=== PATIENT | female | born 1935 | race Caucasian/White ===

== ENCOUNTER 2016-11-22 04:53 | Inpatient (IN) | payer MEDICARE, BC ==
--- NOTE | ~2016-11-22 | DS ---
Unit #: [id number] #: [id number] Patient: KARNE MONK [id number] [address] [address] [id number] MR#: [id number] NAME: KAREN MONK ROOM: 564 Age: Sex: F Admission Date: 11/22/2016 : 1935 Discharge Date: 11/23/2016 Attending Physician: Tremaine Dunn M.D. Primary Care Physician: Lev Govea M.D. DISCHARGE SUMMARY Kindly note, patient left against medical advice this morning before leaving. I spoke with her in the morning and I requested her to stay. I said I would come back and talk to her. Apparently per the nursing staff, she was unhappy and she left. They did not even sign the AMA papers that they left the patient. We did not evaluate the patient today as she left against medical advice. Dictated by... Alethea Cornejo/brenda TD: 11/23/2016 15:13 JOB #: [id number] DISCHARGE SUMMARY Page 1 of 1 X X DISCHARGE SUMMARY
--- NOTE | ~2016-11-22 | CR72 ---
[facility] A Service of [facility] & [facility] RADIOLOGY TEXT RESULTS PATIENT: KAREN MONK LOCATION: [facility] : 35 UNIT #: [id number] AGE: [address]: Tremaine Dunn MD SEX: F ORDER DR: [id number] [facility] [address] [place], [place] [address] [id number] MR#: [id number] Acc #: [id number] NAME: KAREN MONK : 1935 SEX: F STUDY DATE/TIME: 11/22/2016 5:20 UNIT: GRIS ROOM: STUDY DESCRIPTION: CR Chest Single View Portable Attending Physician: Marlon Perdomo M.D. Ordering Physician: Ganesh Barragan M.D. Primary Care Physician: Lev Govea M.D. MEDICAL IMAGING REPORT This report is preliminary unless electronic signature is present EXAM AP portable chest Date: 11/22/2016 HISTORY Nausea, weakness, vomiting and drop in oxygen saturations today. COMPARISON PA and lateral chest radiograph 12/06/2007 FINDINGS Fine interstitial thickening is present predominately in the lower lung zones which appears new since the 12/06/2007 study. Heart size is within normal limits. No pleural effusion or pneumothorax is identified. IMPRESSION AND PLAN Fine interstitial infiltrates seen predominately in the lower lung zones, new since 12/06/2007. Dictated by... Patricia Krueger M.D. THIS IS AN ELECTRONICALLY VERIFIED REPORT Patricia Krueger M.D. at 11/22/2016 10:02 PM YUSUF/radha TD: 11/22/2016 07:05 JOB #: [id number] MEDICAL IMAGING REPORT Page 1 of 1 COPY
--- NOTE | ~2016-11-22 | HP ---
Unit #: [id number] #: [id number] Patient: KAREN MONK [id number] [address] [place], [place] [address] [id number] MR#: [id number] NAME: KAREN MONK. ROOM: 564 Age: 81 Sex: F Admission Date: 11/22/2016 : 1935 Attending Physician: Tremaine Dunn M.D. Primary Care Physician: Lev Govea M.D. HISTORY AND PHYSICAL CHIEF COMPLAINT Nausea, vomiting, and increased frequency of urination. HISTORY OF PRESENTING ILLNESS Patient is an 81-year-old, pleasant, lady with a past medical history of diabetes, hypertension, and hypothyroidism. Presented to the emergency room with a chief complaint of nausea and vomiting for the last one day. She denies any fevers. Denies any chills. She mentions that last week, she had increased frequency of urination and she took a prescription of penicillin she had from September and she took the pills for a couple of days that helped to relieve the symptoms. Yesterday, she went out to [facility] along with her who has to undergo surgery for an ear malignancy and she mentions that she is a little bit stressed out. She denies having any cough, cold, runny nose. Denies any sore throat. Denies any chest pain. Denies any palpitations. Denies any shortness of breath, abdominal pain, or diarrhea. PAST MEDICAL HISTORY History of hypertension; history of diabetes, diet controlled; and hypothyroidism. ALLERGIES Iodinated contrast. MEDICATIONS Home medications include: 1. HCTZ 12.5 mg daily. 2. Vitamin E 200 international units p.o. daily. 3. Synthroid 88 mcg daily. 4. Lisinopril 20 mg daily. 5. Aspirin 81 mg daily. SOCIAL HISTORY She lives with her . Denied any smoking, alcohol, or illicit drugs. Apparently, she is the only one who takes care of her and she is eager to go back to home as soon as possible. FAMILY HISTORY Noncontributory to the current admission. REVIEW OF SYSTEMS Complete review of systems is done and negative, except for what is Unit #: [id number] #: [id number] Patient: KAREN MONK mentioned in the HPI. PHYSICAL EXAMINATION VITAL SIGNS: Temperature 97.8, pulse rate 80, respirations 14, and blood pressure 152/68. GENERAL APPEARANCE: Patient is alert and oriented x3. Lying in the bed in no acute distress. HEENT: Normocephalic and atraumatic. No icterus. PERRLA. Extraocular muscles intact. NECK: Supple. No JVD. HEART: S1 and S2 and regular rate and rhythm. CHEST: Bilateral equal air entry. Clear to auscultation. ABDOMEN: Soft and nontender. EXTREMITIES: No edema. Normal peripheral pulses. DIAGNOSTIC STUDIES LABORATORY: Glucose 207, BUN 12, creatinine 0.6, sodium 131, potassium 3.1, chloride 98, and bicarb 25. WBCs 6.5, hemoglobin 12.8, and platelets 244. UA shows 3+ leuk esterase and 25-50 WBCs. IMAGING: Chest x-ray -- fine interstitial infiltrates, predominantly in the lower lung zones and compared to x-rays from 2008. There were no recent x-rays. ASSESSMENT AND PLAN 1. Urinary tract infection. Will obtain urine for culture. She was started on Rocephin. Will review the culture and change antimicrobials accordingly. 2. Nausea and vomiting. Currently resolved. Will give her p.r.n. Zofran. Her potassium is low. Will replace the potassium and recheck. 3. History of palpitations. Blood pressure is slightly on the higher side. Will continue her current medications and monitor. 4. Diabetes, diet controlled. Sugars are running high. Will check an A1c. Will keep her on insulin sliding scale. 5. Hypothyroidism. Continue with Synthroid. 6. DVT precautions. 7. Further recommendations per hospital course. Possible discharge in a day or two. Dictated by Alethea Cornejo/latasha TD: 11/22/2016 12:58 JOB #: [id number] Unit #: [id number] #: [id number] Patient: KAREN MONK HISTORY AND PHYSICAL Page 1 of 1 X X HISTORY AND PHYSICAL
--- NOTE | ~2016-11-22 | EKG ---
PATIENT: KAREN MONK UNIT #: [id number] Ventricular Rate: 76 BPM Atrial Rate: 76 BPM P-R Interval: 146 ms QRS Duration: 70 ms Q-T Interval: 434 ms QTC Calculation(Bezet): 488 ms P Clark: 139 degrees Calculated R Clark: 33 degrees Calculated T Clark: 33 degrees Diagnosis Line: Sinus rhythm Diagnosis Line: Low voltage QRS Diagnosis Line: Septal infarct , age undetermined Diagnosis Line: Abnormal ECG Diagnosis Line: No previous ECGs available Diagnosis Line: Confirmed by LEANN GRANADOS MD ([id number]) on 11/25/2016 Diagnosis Line: 3:56:42 PM INTERPRETING MD: ROBERTA WHITE
[2016-11-22 04:23] LABS: BASOPHIL# 0.1 X10e3 (0-0.3); BASOPHIL% 0.9 % (0-2.5); EOSINOPHIL# 0.2 X10e3 (0-0.7); EOSINOPHIL% 3.3 % (0.0-7.0); HEMATOCRIT 37.9 % (35.0-45.0); HEMOGLOBIN 12.8 gm/dL (12.0-16.0); LYMPHOCYTE# 1.6 X10e3 (1.0-3.5); LYMPHOCYTE% 25.4 % (17.0-45.0); MEAN CORPUSCULAR HEMOGLOBIN 29.4 PG (28-34); MEAN CORPUSCULAR HGB CONC 33.8 g/dL (30-36); MONOCYTE# 0.6 X10e3 (0-1.0); MONOCYTE% 9.4 % (3.0-12.0); PLATELET COUNT 244 X10e3 (140-420); RED BLOOD COUNT 4.36 X10e (3.90-5.30); RED CELL DISTRIBUTION WIDTH 13.2 % (11.0-15.5); WHITE BLOOD COUNT 6.5 X10e3 (4.0-10.5)
[2016-11-22 04:25] LABS: DIFF IND NO
[2016-11-22 04:42] LABS: ALBUMIN SERUM 4.1 g/dL (3.5-5.0); BILIRUBIN, DIRECT 0.1 mg/dL (0.0-0.2); BILIRUBIN,INDIRECT 0.4 mg/dL (0.0-0.9); BILIRUBIN,TOTAL 0.5 mg/dL (0.2-2.0); CALCIUM SERUM 8.5 mg/dL (8.4-10.2); CREATININE SERUM 0.6 mg/dL (0.6-1.4); GLOM FILT RATE Estimated 85.5 mL/min (>60); POTASSIUM 3.1 mmol/L (3.5-5.1); PROTEIN TOTAL SERUM 7.3 g/dL (6.0-8.3)
[~2016-11-22 04:53] MED LIST: HCTZ; PRANDIN2 MG; SYNTHROID; VIT E
[2016-11-22 05:17] LABS: ARTERIAL BLOOD GAS ALLEN TEST NORMAL; ARTERIAL BLOOD GAS ART SITE RIGHT RADIAL; ARTERIAL BLOOD GAS CARBOXY HB 0.9 %sat (0.0-9.0); ARTERIAL BLOOD GAS DELIVERY NASAL CANNULA; ARTERIAL BLOOD GAS HCO3 25.1 mmol/L; ARTERIAL BLOOD GAS PO2 69.3 mmHg (80.0-100); ARTERIAL BLOOD GAS pH 7.356 (7.350-7.450); ARTERIAL DRAW? YES
[2016-11-22 05:29] LABS: URINE SOURCE CLEAN CATCH
[2016-11-22 06:11] LABS: URINE APPEARANCE CLEAR; URINE BILIRUBIN NEG (NEG); URINE BLOOD NEG (NEG); URINE COLOR YELLOW; URINE GLUCOSE 250 MG/DL (NEG); URINE KETONE NEG (NEG); URINE LEUKOCYTE ESTERASE 3+ (NEG); URINE NITRATE NEG (NEG); URINE PH 6.5 (5-8); URINE PROTEIN NEG (NEG); URINE SPECIFIC GRAVITY 1.014 (1.003-1.035)
[2016-11-22 06:13] LABS: CULTURE INDICATED? YES; U HYALINE CASTS AUWI 0-2 /[LPF]; URBCS1 AUWI 0-2 /[HPF] (0-2); URINE BACTERIA AUWI 1+ (NEGATIVE); URINE SQUAMOUS EPITHELIAL CELL OCC /[HPF]; UWBCS1 AUWI 25-50 (0-5)
[2016-11-22 06:44] LABS: POC - CKMB 1.7 ng/mL (0.0-7.9); POC - TROPONIN <0.05 ng/mL (<=0.05)
[2016-11-22] MEDS ORDERED: LISINOPRIL10 MG PO (09:58)
[2016-11-22] MEDS ORDERED: ASPIRIN81 M2 PO (10:01)
[2016-11-22 13:34] LABS: CALCIUM SERUM 8.4 mg/dL (8.4-10.2); CREATININE SERUM 0.5 mg/dL (0.6-1.4); GLOM FILT RATE Estimated 90.8 mL/min (>60); MAGNESIUM 1.9 mg/dL (1.6-3.0); POTASSIUM 4.2 mmol/L (3.5-5.1)
[2016-11-23 05:27] LABS: BASOPHIL% 0.5 % (0-2.5); EOSINOPHIL# 0.2 X10e3 (0-0.7); HEMATOCRIT 38.1 % (35.0-45.0); HEMOGLOBIN 12.7 gm/dL (12.0-16.0); LYMPHOCYTE# 1.3 X10e3 (1.0-3.5); LYMPHOCYTE% 13.4 % (17.0-45.0); MEAN CELL VOLUME 86.8 FL (83-96); MEAN CORPUSCULAR HGB CONC 33.4 g/dL (30-36); MEAN PLATELET VOLUME 8.4 FL (6.5-11.5); MONOCYTE# 0.7 X10e3 (0-1.0); MONOCYTE% 7.3 % (3.0-12.0); NEUTROPHIL# 7.4 X10e3 (1.5-7.1); NEUTROPHIL% 76.8 % (40-75); PLATELET COUNT 248 X10e3 (140-420); RED BLOOD COUNT 4.39 X10e (3.90-5.30); RED CELL DISTRIBUTION WIDTH 12.9 % (11.0-15.5); WHITE BLOOD COUNT 9.6 X10e3 (4.0-10.5)
[2016-11-23 05:29] LABS: DIFF IND NO
[2016-11-23 06:49] LABS: CALCIUM SERUM 8.8 mg/dL (8.4-10.2); CREATININE SERUM 0.5 mg/dL (0.6-1.4); GLOM FILT RATE Estimated 90.8 mL/min (>60); POTASSIUM 4.1 mmol/L (3.5-5.1)
== END 2016-11-23 08:35 | disposition left against medical advice (07) | DRG 690 ==
LOC: CED 04:53 → CEDOF 07:55 → C5C 12:46
PROVIDERS: Emergency Medicine; Internal Medicine
DX: N39.0 Urinary tract infection, site not specified (principal); E11.9 Type 2 diabetes mellitus without complications; I10 Essential (primary) hypertension; E03.9 Hypothyroidism, unspecified; E87.6 Hypokalemia
CPT/HCPCS: 36415; 36600; 71010; 80048; 80076; 81003; 82150; 82553; 82803; 82947; 83036; 83690; 83735; 84484; 85025; 87086; 93005; 96365; 96374; 96375; 99284; J0360; J0456; J0696; J1650; J1815; J2405; J2765